=== PATIENT | female | born 1975 | race Two or more races ===

== ENCOUNTER 2020-05-26 09:46 | Outpatient (REF) | payer OTHER, SELFPAY | END 2020-05-26 09:47 | disposition home or self-care (01) | LOC: HO.LAB 09:46 | PROVIDERS: Visit Provider Internal Medicine | DX: Z20.822 Contact with and (suspected) exposure to COVID-19 (principal) | CPT/HCPCS: 36415; C9803; U0003 ==

== ENCOUNTER 2020-06-24 11:42 | Outpatient (REF) | payer OTHER, SELFPAY ==
[2020-06-24 13:53] LABS: MANUAL DIFF FLAG NO
[2020-06-24 14:04] LABS: Basophils Absolute Auto 0.1 X10*3/uL (0.0-0.2); Basophils Percent Auto 0.7 % (0-2); Eosinophils Absolute Auto 0.1 X10*3/uL (0.0-0.4); Eosinophils Percent Auto 1.5 % (0-4); Hemoglobin 9.7 g/dl (12.0-16.0); Imm Gran Abs Auto 0.02 X10*3/uL (0.00-0.03); Imm Gran Pct Auto 0.2 % (0.0-0.4); Lymphocytes Absolute Auto 2.2 X10*3/uL (1.2-4.9); Lymphocytes Percent Auto 26.9 % (20-40); Mean Corpuscular HGB Conc 29.4 g/dl (31.0-35.0); Mean Corpuscular Hemoglobin 23.4 pg (27.0-33.0); Mean Corpuscular Volume 79.7 fL (80-98); Mean Platelet Volume 10.5 fL (9.4-12.3); Monocytes Absolute Auto 0.6 X10*3/uL (0.1-1.2); Monocytes Percent Auto 7.8 % (2-11); Neutrophils Absolute Auto 5.2 X10*3/uL (2.0-8.3); Neutrophils Percent Auto 62.9 % (45-73); Platelet Count 332 X10*3/uL (160-400); Red Blood Count 4.14 X10*6/uL (4.20-5.50); Red Cell Distribution Width 15.6 % (11.0-16.0); White Blood Count 8.2 X10*3/uL (4.8-10.8)
[2020-06-24 14:09] LABS: Glucose Urine UA NEG (NEG); Leukocyte Esterase Urine NEG (NEG); Nitrite Urine NEG (NEG); Urine Blood NEG (NEG); Urine Ketones NEG (NEG); Urine Protein NEG (NEG-TRACE)
[2020-06-24 14:14] LABS: Appearance Urine CLEAR; Color Urine YELLOW
[2020-06-24 14:25] LABS: RBC Urine 0 /HPF (0); Squamous Epithelial Cell Urine 1+ /LPF; WBC Urine 0 /HPF (0-4)
[2020-06-24 14:28] LABS: Alanine Aminotransferase 21 U/L (0-31); Albumin Level 4.3 g/dL (3.5-5.0); Alkaline Phosphatase 114 U/L (39-117); Anion Gap 14 (12-20); Aspartate Amino Transferase 18 U/L (5-31); Bilirubin Total 0.6 mg/dL (0.0-1.0); Blood Urea Nitrogen 7 mg/dL (9-16); Calcium 9.3 mg/dL (8.4-10.2); Carbon Dioxide 27 mmol/L (22-29); Chloride 103 mmol/L (96-108); Cholesterol 181 mg/dL; Estimated Glomerular Filt Rate > 60; Glucose Fasting 87 mg/dL (60-99); HDL Cholesterol 59 mg/dL; LDL Cholesterol Calculated 104 mg/dl; Potassium 4.1 mmol/L (3.3-5.1); Sodium 140 mmol/L (135-145); Total Protein 7.8 g/dL (6.5-8.0); Triglycerides 93 mg/dL
[2020-06-24 14:40] LABS: TSH reflex Free T4 0.63 uIU/mL (0.32-4.0)
== END 2020-06-24 11:43 | disposition home or self-care (01) ==
LOC: HO.HMGCLDS 11:42
PROVIDERS: PCP Internal Medicine; Visit Provider Internal Medicine
DX: Z00.00 Encounter for general adult medical examination without abnormal findings (principal); Z13.29 Encounter for screening for other suspected endocrine disorder; Z13.220 Encounter for screening for lipoid disorders
CPT/HCPCS: 36415; 80053; 80061; 81001; 84443; 85025

== ENCOUNTER 2020-07-23 07:08 | Outpatient (REF) | payer OTHER, SELFPAY ==
[2020-07-23 07:49] LABS: Immature Retic Fraction 13.2 % (3.0-15.9); Retic HGB Equivalent 26.9 pg (30.0-35.0); Reticulocytes Absolute 0.041 X10*6/uL (0.026-0.095)
[2020-07-23 08:06] LABS: Iron 23 mcg/dL (30-160); Percent Iron Saturation 6 % (15-50); Total Iron Binding Capacity 362 mcg/dL (228-428); Unsaturated Iron Binding 339 ug/dL
[2020-07-24 18:03] LABS: Folate 10.9 ng/mL (> or = 4.0); Vitamin B12 307 pg/mL (200-900)
== END 2020-07-23 07:09 | disposition home or self-care (01) ==
LOC: HO.LAB 07:08
PROVIDERS: PCP Internal Medicine; Visit Provider Internal Medicine
DX: Z00.00 Encounter for general adult medical examination without abnormal findings (principal)
CPT/HCPCS: 36415; 82607; 82746; 83540; 85045

== ENCOUNTER 2020-08-25 08:18 | Outpatient (REF) | payer OTHER, SELFPAY ==
[2020-08-25 09:14] LABS: COVID-19 Test Negative (Negative)
== END 2020-08-25 08:19 | disposition home or self-care (01) ==
LOC: HO.LAB 08:18
PROVIDERS: Visit Provider Internal Medicine
DX: Z20.822 Contact with and (suspected) exposure to COVID-19 (principal)
CPT/HCPCS: 36415; 87635; C9803

== ENCOUNTER 2020-10-16 09:58 | Outpatient (REF) | payer OTHER, SELFPAY ==
--- NOTE | ~2020-10-16 | MM_ITS ---
EXAMINATION: MM SCREENING DIGITAL BREAST TOMOSYNTHESIS, BILATERAL CLINICAL INFORMATION: Screening. Asymptomatic. Prior history benign left biopsies x3: left stereotactic biopsy 04/04/2016; left ultrasound guided biopsy x2 on 04/04/2016. The lifetime risk of breast cancer based on the Tyrer-Cuzick Model is 14%. COMPARISON: Mammography: 08/19/2017, 06/21/2016, 08/08/2015, targeted right breast ultrasound 06/21/2016 TECHNIQUE: Digital breast tomosynthesis is performed in both the craniocaudal and mediolateral oblique views along with computer-aided detection (CAD). Synthesized 2D images are generated from the tomosynthesis. FINDINGS: The breasts are heterogeneously dense, which may obscure small masses (ACR BI-RADS breast composition Category c). Parenchymal pattern is similar to prior exams. There is no significant mass or developing density or architectural abnormality. Left breast has 3 biopsy clip markers. There is a stable nodule adjacent to the most anterior clip marker 3:00 position consistent with fibroadenoma on biopsy 04/04/2016. There are stable loosely grouped calcifications posterior 3:00 left breast. The axilla and skin contours are unremarkable. MM/MM tomosynthesis screening BI IMPRESSION: No significant changes from prior studies. No mammographic evidence of malignancy. ASSESSMENT: BI-RADS 2: Benign RECOMMENDATION: Routine annual mammography screening. This patient's information was entered into a reminder system with a target due date for their next mammogram.
== END 2020-10-16 09:59 | disposition home or self-care (01) ==
LOC: HO.MAMMO 09:58
PROVIDERS: Visit Provider Internal Medicine
DX: Z12.31 Encounter for screening mammogram for malignant neoplasm of breast (principal)
CPT/HCPCS: 77063; 77067

== ENCOUNTER 2020-11-04 09:58 | Outpatient (REF) | payer OTHER, SELFPAY ==
[2020-11-04 12:01] LABS: ~Hepatitis B Surface Antibody REACTIVE (Nonreactive)
[2020-11-07 14:31] LABS: TS Negative Control Passed; TS Panel A 2; TS Panel B 0; TS Positive Control Passed; TSpotTB Negative (SeeBelow)
== END 2020-11-04 09:59 | disposition home or self-care (01) ==
LOC: HO.HMGCLDS 09:58
PROVIDERS: PCP Internal Medicine; Visit Provider Internal Medicine
DX: Z28.3 Underimmunization status (principal)
CPT/HCPCS: 36415; 86481; 86706; 86735; 86762; 86765; 86787

== ENCOUNTER 2021-02-16 11:23 | Outpatient (REF) | payer OTHER, SELFPAY ==
[2021-02-16 13:50] LABS: Hematocrit 31.5 % (37-47); Hemoglobin 9.7 g/dl (12.0-16.0); Mean Corpuscular HGB Conc 30.8 g/dl (31.0-35.0); Mean Corpuscular Hemoglobin 24.1 pg (27.0-33.0); Mean Corpuscular Volume 78.4 fL (80-98); Mean Platelet Volume 10.3 fL (9.4-12.3); Platelet Count 287 X10*3/uL (160-400); Red Blood Count 4.02 X10*6/uL (4.20-5.50); White Blood Count 10.5 X10*3/uL (4.8-10.8)
[2021-02-16 14:00] LABS: Iron 69 mcg/dL (30-160); Percent Iron Saturation 19 % (15-50); Total Iron Binding Capacity 371 mcg/dL (228-428); Unsaturated Iron Binding 302 ug/dL
[2021-02-16 14:21] LABS: TSH reflex Free T4 0.67 uIU/mL (0.32-4.0)
== END 2021-02-16 11:24 | disposition home or self-care (01) ==
LOC: HO.HMGCLDS 11:23
PROVIDERS: PCP Internal Medicine; Visit Provider Internal Medicine
DX: R10.9 Unspecified abdominal pain (principal); E61.1 Iron deficiency
CPT/HCPCS: 36415; 83540; 84443; 85027

== ENCOUNTER 2021-12-28 09:24 | Outpatient (REF) | payer OTHER, SELFPAY ==
[2021-12-28 11:40] LABS: Hematocrit 34.8 % (37.0-47.0); Hemoglobin 10.8 g/dl (12.0-16.0); Mean Corpuscular Hemoglobin 25.5 pg (27.0-33.0); Mean Corpuscular Volume 82.1 fL (80.0-98.0); Mean Platelet Volume 10.5 fL (9.4-12.3); Platelet Count 296 X10*3/uL (160-400); Red Blood Count 4.24 X10*6/uL (4.20-5.50); Red Cell Distribution Width 14.2 % (11.0-16.0); White Blood Count 9.6 X10*3/uL (4.8-10.8)
[2021-12-28 12:04] LABS: Anion Gap 12 (12-20); Blood Urea Nitrogen 12 mg/dL (9-16); Carbon Dioxide 28 mmol/L (22-29); Chloride 104 mmol/L (96-108); Estimated Glomerular Filt Rate > 60; Glucose Random 88 mg/dL (60-115); Potassium 4.4 mmol/L (3.3-5.1); Sodium 140 mmol/L (135-145)
[2021-12-28 12:27] LABS: Thyroid Stimulating Hormone 0.52 uIU/mL (0.32-4.0)
== END 2021-12-28 09:25 | disposition home or self-care (01) ==
LOC: HO.HMGCLDS 09:24
PROVIDERS: PCP Internal Medicine; Visit Provider Internal Medicine
DX: N93.8 Other specified abnormal uterine and vaginal bleeding (principal)
CPT/HCPCS: 36415; 80048; 84443; 85027

== ENCOUNTER 2022-01-06 08:53 | Outpatient (REF) | payer OTHER, SELFPAY ==
[2022-01-06 11:16] LABS: Hematocrit 23.1 % (37.0-47.0); Hemoglobin 7.3 g/dl (12.0-16.0); Mean Corpuscular HGB Conc 31.6 g/dl (31.0-35.0); Mean Corpuscular Hemoglobin 25.3 pg (27.0-33.0); Mean Corpuscular Volume 80.2 fL (80.0-98.0); Mean Platelet Volume 9.4 fL (9.4-12.3); Platelet Count 276 X10*3/uL (160-400); Red Blood Count 2.88 X10*6/uL (4.20-5.50); Red Cell Distribution Width 14.1 % (11.0-16.0); White Blood Count 12.5 X10*3/uL (4.8-10.8)
[2022-01-06 14:02] LABS: CT PCR NOT DETECTED (Not Detect.); NG PCR NOT DETECTED (Not Detect.)
[2022-01-07 13:07] LABS: BV Int Neg Control Negative (Negative); BV Int Pos Control Positive (Positive)
[2022-01-13 08:32] LABS: HPV mRNA E6/E7 rflx Not Detected (Not Detected)
== END 2022-01-06 08:54 | disposition home or self-care (01) ==
LOC: HO.LAB 08:53
PROVIDERS: PCP Internal Medicine; Visit Provider Advanced Practice Midwife
DX: Z30.430 Encounter for insertion of intrauterine contraceptive device (principal); N93.9 Abnormal uterine and vaginal bleeding, unspecified; N92.0 Excessive and frequent menstruation with regular cycle; N85.2 Hypertrophy of uterus
CPT/HCPCS: 36415; 58100; 58300; 85027; 87480; 87491; 87510; 87591; 87624; 87660; 88142; 88305; J7298

== ENCOUNTER 2022-01-06 11:55 | Emergency (ER) | payer OTHER, SELFPAY ==
[2022-01-06] VITALS (12 sets, daily range): BP systolic 113–137; BP diastolic 72–89; PULSE 71–92; RESP 13–20; TEMP 36.5–37.2; O2SAT 95–100; BMI 24.0
--- NOTE | ~2022-01-06 | US_ITS ---
EXAMINATION: US PELVIS CLINICAL INFORMATION: Abnormal vaginal bleeding with suprapubic pain. COMPARISON: None TECHNIQUE: Ultrasound of the pelvis is performed using both transabdominal and transvaginal transducers along with Doppler. Transvaginal imaging is performed due to inadequate visualization transabdominally. FINDINGS: Uterus: The uterus is anteverted, anteflexed and measures 10.2 cm in length, 4.8 cm and AP and 5.4 cm in transverse dimension. There is an IUD within the endometrial canal with endometrial not well visualized. There is a suspicion for a right lateral uterine cyst measuring 0.9 x 1.0 x 0.6 cm. The uterus is smooth in contour and has normal myometrial echogenicity. No visible fibroid. Adnexa: Both ovaries are visualized. There is normal color flow to the adnexa. There is no ovarian torsion. There is no pelvic ascites or fluid collection. Right ovary measures 2.5 x 1.7 x 1.8 cm and volume 4.0 mL. There are 2 paraovarian cyst measuring 0.7 x 0.5 x 0.7 cm and 1.1 x 0.9 x 1.3 cm. Left ovary measures measures 4.3 x 2.5 x 2.9 cm and volume 16.3 mL. There is anechoic cyst measuring 2.5 x 2.5 x 3.1 cm and a small daughter cyst within. There is no free fluid in cul-de-sac. US/US pelvic and transvaginal IMPRESSION: Reason insertion IUD within the endometrial canal in correct position. 2 right paraovarian cyst and a simple cyst with a daughter cyst within left ovary. Suspect right lateral uterine cyst.
--- NOTE | ~2022-01-06 | US_ITS ---
EXAMINATION: US PELVIS CLINICAL INFORMATION: Abnormal vaginal bleeding with suprapubic pain. COMPARISON: None TECHNIQUE: Ultrasound of the pelvis is performed using both transabdominal and transvaginal transducers along with Doppler. Transvaginal imaging is performed due to inadequate visualization transabdominally. FINDINGS: Uterus: The uterus is anteverted, anteflexed and measures 10.2 cm in length, 4.8 cm and AP and 5.4 cm in transverse dimension. There is an IUD within the endometrial canal with endometrial not well visualized. There is a suspicion for a right lateral uterine cyst measuring 0.9 x 1.0 x 0.6 cm. The uterus is smooth in contour and has normal myometrial echogenicity. No visible fibroid. Adnexa: Both ovaries are visualized. There is normal color flow to the adnexa. There is no ovarian torsion. There is no pelvic ascites or fluid collection. Right ovary measures 2.5 x 1.7 x 1.8 cm and volume 4.0 mL. There are 2 paraovarian cyst measuring 0.7 x 0.5 x 0.7 cm and 1.1 x 0.9 x 1.3 cm. Left ovary measures measures 4.3 x 2.5 x 2.9 cm and volume 16.3 mL. There is anechoic cyst measuring 2.5 x 2.5 x 3.1 cm and a small daughter cyst within. There is no free fluid in cul-de-sac. US/US pelvic ovarian doppler IMPRESSION: Reason insertion IUD within the endometrial canal in correct position. 2 right paraovarian cyst and a simple cyst with a daughter cyst within left ovary. Suspect right lateral uterine cyst.
--- NOTE | 2022-01-06 12:29 | ECG_ITS ---
Test Reason : dizziness Blood Pressure : / mmHG Vent. Rate : 089 BPM Atrial Rate : 089 BPM P-R Int : 166 ms QRS Dur : 080 ms QT Int : 376 ms P-R-T Axes : 053 014 024 degrees QTc Int : 457 ms Normal sinus rhythm Normal ECG No previous ECGs available Referred By: Lidia Russell Electronically Signed By:KAMILA OWENS
[2022-01-06] MEDS: 0.9 % Sodium Chloride 1,000 ML 999 ML IVCONT (12:43)
[2022-01-06 12:47] LABS: MANUAL DIFF FLAG NO
[2022-01-06 12:49] LABS: Basophils Absolute Auto 0.1 X10*3/uL (0.0-0.2); Basophils Percent Auto 0.6 % (0-2); Eosinophils Absolute Auto 0.3 X10*3/uL (0.0-0.4); Eosinophils Percent Auto 2.1 % (0-4); Hematocrit 23.1 % (37.0-47.0); Hemoglobin 7.3 g/dl (12.0-16.0); Imm Gran Abs Auto 0.05 X10*3/uL (0.00-0.03); Imm Gran Pct Auto 0.4 % (0.0-0.4); Lymphocytes Absolute Auto 2.7 X10*3/uL (1.2-4.9); Lymphocytes Percent Auto 22.6 % (20-40); Mean Corpuscular HGB Conc 31.6 g/dl (31.0-35.0); Mean Corpuscular Hemoglobin 25.4 pg (27.0-33.0); Mean Corpuscular Volume 80.5 fL (80.0-98.0); Mean Platelet Volume 9.7 fL (9.4-12.3); Monocytes Absolute Auto 0.8 X10*3/uL (0.1-1.2); Monocytes Percent Auto 6.8 % (2-11); Neutrophils Percent Auto 67.5 % (45-73); Platelet Count 280 X10*3/uL (160-400); Red Blood Count 2.87 X10*6/uL (4.20-5.50); Red Cell Distribution Width 14.3 % (11.0-16.0); White Blood Count 11.8 X10*3/uL (4.8-10.8)
[2022-01-06 12:59] LABS: INTERNATIONAL NORM RATIO 1.1 (0.9-1.1); Prothrombin Time 12.8 SEC (10.0-13.1)
[2022-01-06 13:11] LABS: Alanine Aminotransferase 18 U/L (0-31); Albumin Level 3.8 g/dL (3.5-5.0); Alkaline Phosphatase 88 U/L (39-117); Anion Gap 11 (12-20); Aspartate Amino Transferase 18 U/L (5-31); Bilirubin Total 0.4 mg/dL (0.0-1.0); Blood Urea Nitrogen 8 mg/dL (9-16); Calcium 8.9 mg/dL (8.4-10.2); Carbon Dioxide 27 mmol/L (22-29); Chloride 103 mmol/L (96-108); Creatinine Clr Calc Pharmacy 88.9; Estimated Glomerular Filt Rate > 60; Glucose Random 115 mg/dL (60-115); Magnesium 1.8 mg/dL (1.6-2.6); Potassium 3.6 mmol/L (3.3-5.1); Sodium 137 mmol/L (135-145); Total Protein 6.8 g/dL (6.5-8.0)
[2022-01-06 13:17] LABS: HCG Quantitative < 2 mIU/mL
--- NOTE | 2022-01-06 13:43 | ED.PREGNANCY ---
HPI - General Chief complaint: Recheck/Abnormal Lab/Rx Stated complaint: Blood transfusion Time Seen by Provider: 01/06/22 12:28 Source: patient Mode of arrival: ambulatory Limitations: no limitations History of Present Illness HPI Narrative: 46-year-old female who is currently being followed by OBZAHRA Covington CNM here at [facility] presenting to the ED after she was sent here by OBGYN for low H&H of 7.3/23.1 when compared to 12/28/2021 after her H&H was 18.8/34.8 due to abnormal uterine bleeding. Patient reports that over the past few weeks she has had abnormal vaginal bleeding with clots where she is using multiple pads daily. She reports associated dizziness. She just had a IUD placed prior to arrival by OBGYN. She reports she did have abnormal vaginal bleeding in the past 3 times and she had her 3 kids she had to receive blood transfusion although has never had this other than when she gave to her 3 kids. She denies any headaches, change in vision, nausea/vomiting, chest pain or shortness of breath, dyspnea on exertion, orthopnea, palpitations, paresthesias, back pain, dysuria, abnormal vaginal discharge, thoughts of STDs, history of cancer, recent travel or sick contacts, rashes, thoughts of or any other symptoms complaints or concerns at this time. MD Complaint: abdominal pain and vaginal bleeding Onset (ago): day(s) Pain Consistency: constant Location: pelvis Severity: moderate Quality: Cramping and Aching Relieving factors: none Exacerbating factors: none Associated symptoms: vaginal bleeding, abdominal pain and other (dizziness) Vaginal discharge: none Vaginal bleeding: heavy and clots Date of Last Menstrual Period: 01/06/22 Patient : No Related Data Allergies Allergy/AdvReac Type Severity Reaction Status Date / Time EPIDURAL Allergy Severe HYPERTENSIO Uncoded 01/06/22 09:00 N SIERRA LEONEAN CHEESE Allergy Intermediate HIVES/ITCHI Uncoded 01/06/22 09:00 NG Epidural Needle Allergy Unknown redness Uncoded 01/06/22 09:00 and itching Epidural AdvReac Unknown BP spike, Uncoded 01/06/22 09:00 heart pounding Review of Systems Review of Systems: Constitutional : No Fever, No Chills ENT/Mouth : No sore throat, No Rhinorrhea Eyes: No Eye Pain, No Redness Cardiovascular : No Chest Pain, No SOB Respiratory : No Cough, No Sputum, No Wheezing Gastrointestinal : + abdominal pain, No Nausea, No Vomiting, No Diarrhea Genitourinary : + irregular vaginal bleeding, No Dysuria, No Urinary Frequency, No pelvic pain, No abdnormal vaginal discharge Musculoskeletal : No Myalgias Skin : No rash Neuro : + Dizziness, No Weakness, No Headache Psych : No Anxiety/Panic, No Depression Heme/Lymph: No bruising, No Lymphadenopathy Endocrine : No Polyuria, No Polydipsia Yes all other systems are reviewed and are negative [facility] Past Medical History Attestation statement: The following information was validated with the patient. Source: old records reviewed and nursing notes reviewed Medical History Abdominal pain Anemia Annual physical exam Anxiety Depression Eczema Gallstones History of anemia Iron deficiency Overweight Vitamin D deficiency Surgical History History of ankle surgery History of foot surgery History of laparoscopic cholecystectomy History of tubal ligation Date of Last Menstrual Period: 01/06/22 Social History Social History Housing: House Alcohol intake: current Alcohol intake frequency: holidays/special occasions only Patient Tobacco Use Status: Never used Tobacco e-Cigarette/Vaping Use: Never Used Current occupational status: unemployed Physical Exam Vital Signs: Vital Signs: Last Vital Signs Temp 98.0 F 01/06/22 17:07 Pulse 83 01/06/22 17:07 Resp 16 01/06/22 17:07 BP 116/72 01/06/22 17:07 Pulse Ox 100 01/06/22 15:33 O2 Del Method 01/06/22 15:33 BMI result Body Mass Index 24.0 vital signs have been reviewed as normal and appeared to be correct. Blood pressure normal. Heart rate normal. Respiration rate normal. Temperature normal. Oxygen saturation normal. Appearance: Alert. Oriented X3. No acute distress. Head: Normal external exam. Normocephalic. Atraumatic. Eyes: PERRLA. EOMI. Conjunctiva and sclera normal. Eyelids normal. ENT: Pharynx normal. Uvula midline. Moist mucous membranes. No trismus noted. No drooling noted. No muffled voice noted. Neck: Normal inspection. Neck supple. FROM. No adenopathy. Thyroid Normal. No meningeal signs. No neck mass noted. CVS: Normal heart rate and rhythm. Heart sound normal. No murmurs noted. Pulses normal throughout. Respiratory: No respiratory distress. Painless inspiration. Breath sounds normal. No wheezes/rales/rhonchi noted. Chest nontender. No accessory muscle usage noted or decreased air movement noted. Abdomen: Soft and nontender. Bowel sounds normal in all 4 quadrants. No distention noted. No organomegaly noted. No visible injury noted. : Supervised by [employer], Normal external appearance of urethra. No lesions/lacerations or discharge or tenderness noted. Speculum exam normal appearance/palpation of vagina normal. No abnormal vaginal discharge noted. Otherwise no vaginal erythema. No foreign bodies noted. No vaginal laceration/lesions noted. She does have some dark blood noted at the cervix although no active bleeding. When she call she does not have any bleeding. IUD string noted. No tissue present in vagina. No vaginal mass noted. No vaginal swelling noted. No vaginal tenderness noted. Normal appearance of cervix. Normal palpation of cervix. Cervical os is closed. No abnormal cervical discharge noted. No cervical lesion/mass. No Bartholin cyst noted. No cervical motion tenderness noted. Negative chandelier sign. Normal bimanual exam. Uterine size normal. Bladder normal to palpation. Uterine consistency normal. Normal cervical palpation. Uterine mobility normal. Uterine shape normal. Normal adnexa. Normal rectovaginal exam. Back: No CVA tenderness. Full range of motion noted. Skin: Skin warm and dry. Normal skin color. Normal skin turgor. No rashes/lesions/lacerations noted. Extremities: No lower extremity edema. No calf tenderness is noted. Extremities exhibit normal range of motion. Extremities nontender. Neuro: Oriented X 3. No motor deficit. No sensory deficit. Reflexes normal. Course Course Course Narrative: 12:30pm - 46-year-old female who is currently being followed by MILAN Covington CNM here at [facility] presenting to the ED after she was sent here by OBGYN for low H&H of 7.3/23.1 when compared to 12/28/2021 after her H&H was 18.8/34.8 due to abnormal uterine bleeding. Patient reports that over the past few weeks she has had abnormal vaginal bleeding with clots where she is using multiple pads daily. She reports associated dizziness. She just had a IUD placed prior to arrival by OBGYN. She reports she did have abnormal vaginal bleeding in the past 3 times and she had her 3 kids she had to receive blood transfusion although has never had this other than when she gave to her 3 kids. Patient had labs while she was in the waiting room and patient's white blood cell count [id number]. H&H 7.3/23.1. Anion gap 11. BUN 8. Otherwise all other labs are within normal limits. Serum quant negative for . On exam patient has mild suprapubic abdominal pain. Vaginal exam revealed some dark red blood no clots and no active bleeding and no abnormal discharge no abnormalities noted to the cervical os. Cervical os is closed. No CVA tenderness is noted. No rashes or lesions noted. Plan: Patient signed blood transfusion consent form at this time. Will order 2 packs of red blood cells, L of IV fluids, ovarian/Doppler/pelvic/transvaginal ultrasound along with UA and re-evaluate. Reevaluation(s) Reevaluation #1: - no evidence of UTI on UA. - I performed a second vaginal/speculum exam and patient is no longer bleeding. She reports the symptoms are completely resolved. - ultrasound revealed recent insertion IUD with in the endometrial canal and correct position with 2 Angelique ovarian cyst and simple cysts with the daughter cyst within the left ovary. Suspect right lateral uterine cyst otherwise no other acute processes. Therefore at this time Dr. Ornelas reported the patient can be discharged with follow-up. And instructed to return if any new or worsening symptoms. Patient understands agrees with this plan. Time: 20:22 MDM - OB/Uterine Contractions Medical Records Attestation: I reviewed the patient's medical records. Lab Data Attestation: I reviewed the patient's lab results. Result diagrams: 01/06/22 12:41 01/06/22 12:41 Labs: Lab Results 01/06/22 01/06/22 01/06/22 Range/Units 12:41 12:41 12:41 WBC 11.8 H (4.8-10.8) X10*3/uL RBC 2.87 L (4.20-5.50) X10*6/uL Hgb 7.3 L (12.0-16.0) g/dl Hct 23.1 L (37.0-47.0) % MCV 80.5 (80.0-98.0) fL MCH 25.4 L (27.0-33.0) pg MCHC 31.6 (31.0-35.0) g/dl RDW 14.3 (11.0-16.0) % Plt Count 280 (160-400) X10*3/uL MPV 9.7 (9.4-12.3) fL Immature Gran % (Auto) 0.4 (0.0-0.4) % Neut % (Auto) 67.5 (45-73) % Lymph % (Auto) 22.6 (20-40) % [place] % (Auto) 6.8 (2-11) % Eos % (Auto) 2.1 (0-4) % Baso % (Auto) 0.6 (0-2) % Lymph # (Auto) 2.7 (1.2-4.9) X10*3/uL [place] # (Auto) 0.8 (0.1-1.2) X10*3/uL Eos # (Auto) 0.3 (0.0-0.4) X10*3/uL Baso # (Auto) 0.1 (0.0-0.2) X10*3/uL Abs Immat Gran (auto) 0.05 H (0.00-0.03) X10*3/uL Absolute Neuts (auto) 8.0 (2.0-8.3) x10*3/uL Absolute Nucleated RBC 0.000 (0.0-0.012) X10*3/uL Nucleated RBC % (auto) 0.0 (0.0-0.2) /100WBC PT 12.8 (10.0-13.1) SEC INR 1.1 (0.9-1.1) Sodium 137 (135-145) mmol/L Potassium 3.6 (3.3-5.1) mmol/L Chloride 103 (96-108) mmol/L Carbon Dioxide 27 (22-29) mmol/L Anion Gap 11 L (12-20) BUN 8 L (9-16) mg/dL Creatinine 0.64 (0.5-1.4) mg/dL Estim Creat Clear Calc 88.9 Estimated GFR > 60 Random Glucose 115 (60-115) mg/dL Calcium 8.9 (8.4-10.2) mg/dL Magnesium 1.8 (1.6-2.6) mg/dL Total Bilirubin 0.4 (0.0-1.0) mg/dL AST 18 (5-31) U/L ALT 18 (0-31) U/L Alkaline Phosphatase 88 D (39-117) U/L Total Protein 6.8 (6.5-8.0) g/dL Albumin 3.8 (3.5-5.0) g/dL Beta HCG, Quant < 2 mIU/mL Urine Color Urine Appearance Urine pH (5.0-8.0) Ur Specific [place] (1.005-1.025) Urine Protein (Neg-Trace) mg/dL Urine Glucose (UA) (Negative) mg/dL Urine Ketones (Negative) mg/dL Urine Blood (Negative) Urine Nitrite (Negative) Ur Leukocyte Esterase (Negative) Urine RBC (0-2) /HPF Urine WBC (0-5) /HPF Ur Squamous Epith Cells (0-2) /HPF Urine Bacteria (None Seen) Hyaline Casts (0-2) /LPF COVID-19 (CH[facility]U) (Negative) COVID-19 Clin Com Blood Type Antibody Screen Crossmatch 01/06/22 01/06/22 01/06/22 Range/Units 12:57 13:47 14:50 WBC (4.8-10.8) X10*3/uL RBC (4.20-5.50) X10*6/uL Hgb (12.0-16.0) g/dl Hct (37.0-47.0) % MCV (80.0-98.0) fL MCH (27.0-33.0) pg MCHC (31.0-35.0) g/dl RDW (11.0-16.0) % Plt Count (160-400) X10*3/uL MPV (9.4-12.3) fL Immature Gran % (Auto) (0.0-0.4) % Neut % (Auto) (45-73) % Lymph % (Auto) (20-40) % [place] % (Auto) (2-11) % Eos % (Auto) (0-4) % Baso % (Auto) (0-2) % Lymph # (Auto) (1.2-4.9) X10*3/uL [place] # (Auto) (0.1-1.2) X10*3/uL Eos # (Auto) (0.0-0.4) X10*3/uL Baso # (Auto) (0.0-0.2) X10*3/uL Abs Immat Gran (auto) (0.00-0.03) X10*3/uL Absolute Neuts (auto) (2.0-8.3) x10*3/uL Absolute Nucleated RBC (0.0-0.012) X10*3/uL Nucleated RBC % (auto) (0.0-0.2) /100WBC PT (10.0-13.1) SEC INR (0.9-1.1) Sodium (135-145) mmol/L Potassium (3.3-5.1) mmol/L Chloride (96-108) mmol/L Carbon Dioxide (22-29) mmol/L Anion Gap (12-20) BUN (9-16) mg/dL Creatinine (0.5-1.4) mg/dL Estim Creat Clear Calc Estimated GFR Random Glucose (60-115) mg/dL Calcium (8.4-10.2) mg/dL Magnesium (1.6-2.6) mg/dL Total Bilirubin (0.0-1.0) mg/dL AST (5-31) U/L ALT (0-31) U/L Alkaline Phosphatase (39-117) U/L Total Protein (6.5-8.0) g/dL Albumin (3.5-5.0) g/dL Beta HCG, Quant mIU/mL Urine Color Yellow Urine Appearance Clear Urine pH 6.0 (5.0-8.0) Ur Specific [place] 1.010 (1.005-1.025) Urine Protein Negative (Neg-Trace) mg/dL Urine Glucose (UA) Negative (Negative) mg/dL Urine Ketones Negative (Negative) mg/dL Urine Blood Large (3+) H (Negative) Urine Nitrite Negative (Negative) Ur Leukocyte Esterase Negative (Negative) Urine RBC >20 H (0-2) /HPF Urine WBC 0-5 (0-5) /HPF Ur Squamous Epith Cells 3-5 (0-2) /HPF Urine Bacteria None Seen (None Seen) Hyaline Casts 0-2 (0-2) /LPF COVID-19 ([facility]U) Negative (Negative) COVID-19 Clin Com See Note Blood Type O Positive Antibody Screen NEGATIVE Crossmatch See Detail Imaging Data Ovarian/Doppler ultrasound: Attestation: I personally reviewed and interpreted this imaging study as follows: Radiologist's impression: FINDINGS: Uterus: The uterus is anteverted, anteflexed and measures 10.2 cm in length, 4.8 cm and AP and 5.4 cm in transverse dimension. There is an IUD within the endometrial canal with endometrial not well visualized. There is a suspicion for a right lateral uterine cyst measuring 0.9 x 1.0 x 0.6 cm. The uterus is smooth in contour and has normal myometrial echogenicity. ? No visible fibroid. Adnexa: Both ovaries are visualized. There is normal color flow to the adnexa. There is no ovarian torsion.? There is no pelvic ascites or fluid collection. Right ovary measures 2.5 x 1.7 x 1.8 cm and volume 4.0 mL. There are 2 paraovarian cyst measuring 0.7 x 0.5 x 0.7 cm and 1.1 x 0.9 x 1.3 cm. Left ovary measures measures 4.3 x 2.5 x 2.9 cm and volume 16.3 mL. There is anechoic cyst measuring 2.5 x 2.5 x 3.1 cm and a small daughter cyst within. There is no free fluid in cul-de-sac. US/US pelvic and transvaginal IMPRESSION: Reason insertion IUD within the endometrial canal in correct position. ? 2 right paraovarian cyst and a simple cyst with a daughter cyst within left ovary. ? Suspect right lateral uterine cyst. ECG Data Attestation: I personally reviewed and interpreted this ECG as follows: ECG interpretation date: 01/06/22 ECG interpretation time: 12:38 Interpretation: Normal sinus rhythm ventricular rate of 89 with a normal [place] interval normal QRS duration normal QT/QTC interval. No acute ischemic change are noted. No prior EKGs to compare to at this time. Critical Care Time Critical Care Time Critical Care Time: Yes Total Critical Care Time: 60 Attestation: I personally attest to this time spent taking care of the patient Discharge Plan Discharge Clinical Impression: Abnormal uterine bleeding (AUB), Anemia, Ovarian cyst, Cyst of uterus Patient Disposition: Home, Self-Care Instructions: Menorrhagia (ED), Anemia (ED) Referrals: Kelly Hoyt MD [Primary Care Provider] - 3 days Juan Ornelas MD [Physician] - 3 days Stand Alone Forms: Work/School Release Print Language: Algerian
[2022-01-06 15:15] LABS: COVID-19 Test Negative (Negative)
[2022-01-06 16:21] LABS: Appearance Urine Clear; Color Urine Yellow; Glucose Urine UA Negative (Negative); Leukocyte Esterase Urine Negative (Negative); Nitrite Urine Negative (Negative); Urine Blood Large (3+) (Negative); Urine Ketones Negative (Negative); Urine Protein Negative (Neg-Trace)
[2022-01-06 16:25] LABS: Bacteria Urine None Seen (None Seen); Hyaline Casts Urine 0-2 /LPF (0-2); RBC Urine >20 /HPF (0-2); WBC Urine 0-5 /HPF (0-5)
--- NOTE | 2022-01-06 17:09 | PC.NURSE ---
second unit of blood transfused- pt denies any reaction. vss.
--- NOTE | 2022-01-06 21:24 | P.CONOB_ITS ---
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 The?patient gives a history of of heavy vaginal bleeding associated with passage of blood clots and abdominal cramping over the last few weeks. In the office, an endometrial biopsy was taken and Mirena IUD inserted. H&H was sent stat and came back at 7.3/23.1 . HCG less than 2 cc:: CC: OB PMFSH Past Medical History Medical History Abdominal pain Anemia Annual physical exam Anxiety Depression Eczema Gallstones History of anemia Iron deficiency Overweight Vitamin D deficiency Surgical History Surgical History History of ankle surgery History of foot surgery History of laparoscopic cholecystectomy History of tubal ligation Social History Social History Housing: House Alcohol intake: current Alcohol intake frequency: holidays/special occasions only Patient Tobacco Use Status: Never used Tobacco e-Cigarette/Vaping Use: Never Used Current occupational status: unemployed Meds Allergies Allergy/AdvReac Type Severity Reaction Status Date / Time EPIDURAL Allergy Severe HYPERTENSIO Uncoded 01/06/22 09:00 N GAMBIAN CHEESE Allergy Intermediate HIVES/ITCHI Uncoded 01/06/22 09:00 NG Epidural Needle Allergy Unknown redness Uncoded 01/06/22 09:00 and itching Epidural AdvReac Unknown BP spike, Uncoded 01/06/22 09:00 heart pounding [employer]GER Physical Exam Vitals Vital signs: Temp Pulse Resp BP Pulse Ox O2 Del Method 99 F 78 14 126/89 100 01/06/22 20:33 01/06/22 20:33 01/06/22 20:33 01/06/22 20:33 01/06/22 20:33 01/06/22 20:33 BMI result Body Mass Index 24.0 Additional Comments: Physical exam reported by JOSEPH Felix in the emergency as the following: Abdomen nontender soft benign Pelvic exam minimal blood per vagina no evidence of active bleeding, IUD string identified, no cervical motion tenderness adnexal tenderness or uterine tender [employer] AND [employer]GER - Results Labs CBC & Chem 7: 01/06/22 12:41 01/06/22 12:41 Labs: Short CBC 01/06/22 Range/Units 12:41 WBC 11.8 H (4.8-10.8) X10*3/uL Hgb 7.3 L (12.0-16.0) g/dl Hct 23.1 L (37.0-47.0) % Plt Count 280 (160-400) X10*3/uL BMP 01/06/22 12:41 Sodium 137 Potassium 3.6 Chloride 103 Carbon Dioxide 27 BUN 8 L Creatinine 0.64 Calcium 8.9 Liver Function 01/06/22 Range/Units 12:41 Total Bilirubin 0.4 (0.0-1.0) mg/dL AST 18 (5-31) U/L ALT 18 (0-31) U/L Alkaline Phosphatase 88 D (39-117) U/L Albumin 3.8 (3.5-5.0) g/dL Urine 01/06/22 Range/Units 13:47 Urine Color Yellow Urine Appearance Clear Urine pH 6.0 (5.0-8.0) Ur Specific [place] 1.010 (1.005-1.025) Urine Protein Negative (Neg-Trace) mg/dL Urine Glucose (UA) Negative (Negative) mg/dL Antibody Screen Antibody Screen NEGATIVE 01/06/22 12:57 Imaging US - abdomen: Radiologist's impression: ITS Impressions Doppler Study Ultrasound 01/06/22 19:41 IMPRESSION: Reason insertion IUD within the endometrial canal in correct position. 2 right paraovarian cyst and a simple cyst with a daughter cyst within left ovary. Suspect right lateral uterine cyst. Pelvic/Transvag US 01/06/22 19:41 IMPRESSION: Reason insertion IUD within the endometrial canal in correct position. 2 right paraovarian cyst and a simple cyst with a daughter cyst within left ovary. Suspect right lateral uterine cyst. Assessment and Plan (1) Anemia: Status: Acute Plan The patient received 2 units of packed RBCs, was in stable condition afterwards, a repeat pelvic exam by JOSEPH Felix in the emergency room was reported to show no evidence of bleeding. Recommended therefore the following: Discharge the patient home, to follow up in the morning in the office with repeat CBC and to come back to emergency room in case of abdominal pain, fever, heavy vaginal bleeding, iron sulfate 325 mg p.o. t.i.d. I Spent a total of 20 minutes reviewing the chart, communicating to the ER provider and documenting the medical record
== END 2022-01-06 20:41 | disposition home or self-care (01) ==
PROVIDERS: Physician Assistant Medical; Emergency Provider Emergency Medicine Emergency Medical Services; PCP Internal Medicine
DX: N93.8 Other specified abnormal uterine and vaginal bleeding (principal); D64.9 Anemia, unspecified; N83.292 Other ovarian cyst, left side; N83.291 Other ovarian cyst, right side; N85.8 Other specified noninflammatory disorders of uterus; Z20.822 Contact with and (suspected) exposure to COVID-19
CPT/HCPCS: 36415; 36430; 76830; 76856; 80053; 81001; 81003; 83735; 84702; 85025; 85610; 86850; 86900; 86901; 86923; 87635; 93005; 93975; 96360; 99285; P9016

== ENCOUNTER 2022-01-07 11:12 | Outpatient (REF) | payer OTHER, SELFPAY ==
[2022-01-07 12:04] LABS: Hemoglobin 9.7 g/dl (12.0-16.0); Mean Corpuscular HGB Conc 32.3 g/dl (31.0-35.0); Mean Corpuscular Hemoglobin 26.4 pg (27.0-33.0); Mean Corpuscular Volume 81.5 fL (80.0-98.0); Mean Platelet Volume 9.8 fL (9.4-12.3); Platelet Count 287 X10*3/uL (160-400); Red Blood Count 3.68 X10*6/uL (4.20-5.50); Red Cell Distribution Width 14.4 % (11.0-16.0); White Blood Count 10.1 X10*3/uL (4.8-10.8)
[2022-01-07 12:06] LABS: Appearance Urine Clear; Color Urine Yellow; Glucose Urine UA Negative (Negative); Leukocyte Esterase Urine Moderate (2+) (Negative); Nitrite Urine Negative (Negative); Specific Gravity - Urine <= 1.005 (1.005-1.025); Urine Blood Moderate (2+) (Negative); Urine Ketones Negative (Negative); Urine Protein Negative (Neg-Trace)
[2022-01-07 12:23] LABS: Bacteria Urine None Seen (None Seen); Hyaline Casts Urine 0-2 /LPF (0-2); RBC Urine 0-2 /HPF (0-2); Squamous Epithelial Cell Urine 0-2 /HPF (0-2); UACC Culture Trigger YES
[2022-01-07 12:53] LABS: Alanine Aminotransferase 19 U/L (0-31); Albumin Level 3.7 g/dL (3.5-5.0); Alkaline Phosphatase 84 U/L (39-117); Anion Gap 12 (12-20); Aspartate Amino Transferase 18 U/L (5-31); Bilirubin Total 0.4 mg/dL (0.0-1.0); Blood Urea Nitrogen 7 mg/dL (9-16); Calcium 8.7 mg/dL (8.4-10.2); Carbon Dioxide 25 mmol/L (22-29); Chloride 105 mmol/L (96-108); Cholesterol 173 mg/dL; Estimated Glomerular Filt Rate > 60; Glucose Fasting 78 mg/dL (60-99); HDL Cholesterol 45 mg/dL; Iron 93 mcg/dL (30-160); LDL Cholesterol Calculated 97 mg/dl; Percent Iron Saturation 26 % (15-50); Potassium 4.3 mmol/L (3.3-5.1); Sodium 138 mmol/L (135-145); Total Iron Binding Capacity 351 mcg/dL (228-428); Total Protein 6.5 g/dL (6.5-8.0); Triglycerides 155 mg/dL; Unsaturated Iron Binding 258 ug/dL
[2022-01-07 12:58] LABS: Vitamin D 25-OH Total 20.8 ng/mL (>30)
== END 2022-01-07 11:13 | disposition home or self-care (01) ==
LOC: HO.LAB 11:12
PROVIDERS: PCP Internal Medicine; Visit Provider Advanced Practice Midwife
DX: Z00.00 Encounter for general adult medical examination without abnormal findings (principal); N92.0 Excessive and frequent menstruation with regular cycle; E55.9 Vitamin D deficiency, unspecified; E61.1 Iron deficiency; D64.9 Anemia, unspecified
CPT/HCPCS: 36415; 80053; 80061; 81001; 82306; 83540; 85027; 87086

== ENCOUNTER 2022-01-26 12:03 | Outpatient (REF) | payer OTHER, SELFPAY | END 2022-01-26 12:04 | disposition home or self-care (01) | LOC: HO.MDS 12:03 | PROVIDERS: Visit Provider Internal Medicine | DX: D50.9 Iron deficiency anemia, unspecified (principal) | CPT/HCPCS: 96365; J1756 ==

== ENCOUNTER 2022-02-02 08:09 | Outpatient (REF) | payer OTHER, SELFPAY | END 2022-02-02 08:10 | disposition home or self-care (01) | LOC: HO.MDS 08:09 | PROVIDERS: Visit Provider Internal Medicine | DX: D50.9 Iron deficiency anemia, unspecified (principal) | CPT/HCPCS: 96365; J1756 ==

== ENCOUNTER 2022-02-09 09:31 | Outpatient (REF) | payer OTHER, SELFPAY | END 2022-02-09 09:32 | disposition home or self-care (01) | LOC: HO.MDS 09:31 | PROVIDERS: Visit Provider Internal Medicine | DX: D50.9 Iron deficiency anemia, unspecified (principal) | CPT/HCPCS: 96365; J1756 ==

== ENCOUNTER 2022-02-25 10:58 | Day surgery (SDC) | payer OTHER, SELFPAY ==
--- NOTE | 2022-02-24 10:33 | P.CONAN_ITS ---
Documented by User: Roseann Paredes NP 02/24/22 10:33 HPI - Anesthesia Eval Consult details Narrative: 46yo F for Uterine Ablation w/Novasure,with IUD removal PMFSH Active Problems Active Problems: All Active Problems (Updated 02/03/22 @ 15:30 by Juan Ornelas MD) Microscopic hematuria (Acute) Anemia (Acute) Encounter for IUD insertion (Acute) Enlarged uterus (Acute) Heavy menstrual bleeding (Acute) Abnormal uterine bleeding (AUB) (Acute) Dysfunctional uterine bleeding (Acute) Abdominal pain (Acute) Incomplete immunization status (Acute) Depression (Acute) Anxiety (Acute) Vitamin D deficiency (Acute) Iron deficiency (Acute) Annual physical exam (Acute) Past Medical History Medical History Abdominal pain Anemia Annual physical exam Anxiety Depression Eczema Gallstones History of anemia Iron deficiency Overweight Vitamin D deficiency Surgical History Surgical History History of ankle surgery History of foot surgery History of laparoscopic cholecystectomy History of tubal ligation Social History Social History Household Members: Spouse and Children Housing: House Alcohol intake: current Alcohol intake frequency: does not drink Patient Tobacco Use Status: Current someday Tobacco user Tobacco use type: Cigarette Cigarettes Per Day: 2 Years Smoked: 20 Smoked in Last 30 Days: Yes e-Cigarette/Vaping Use: Never Used Use of substances other than those prescribed or required for medical reasons: No Are you DNR?: No Advance Directives: No Advance Directives Information Provided: Yes Patient : No service: No Current occupational status: employed and unemployed Meds Allergies Allergy/AdvReac Type Severity Reaction Status Date / Time EPIDURAL Allergy Severe HYPERTENSIO Uncoded 02/25/22 11:21 N ECUADOREAN CHEESE Allergy Intermediate HIVES/ITCHI Uncoded 02/25/22 11:21 NG Home Medications Medication Instructions Recorded Confirmed Last Taken Type levonorgestrel 20 mcg/24 hours (8 intrauterine control 01/07/22 Unknown History yrs) 52 mg intrauterine device (Mirena) Exam Exam Date and Time: February 24, 2022 1033 Pertinent Lab Results Pertinent Lab Results: Laboratory Tests 01/07/22 01/19/22 11:44 15:53 WBC 10.4 Hgb 9.9 L Hct 31.2 L Plt Count 262 Sodium 138 Potassium 4.3 Chloride 105 Carbon Dioxide 25 BUN 7 L Creatinine 0.60 Assessment and Plan Assessment Anesthesia Assessment: Chart Reviewed Documented by User: Yoshi Jj MD 02/25/22 12:43 [facility] Past Medical History Medical History Abdominal pain Anemia Annual physical exam Anxiety Depression Eczema Gallstones History of anemia Iron deficiency Overweight Vitamin D deficiency Patient : No Family History Family history of problems with anesthesia: No Surgical History Surgical History History of ankle surgery History of foot surgery History of laparoscopic cholecystectomy History of tubal ligation History of Problems with Anesthesia: No Social History Social History Household Members: Spouse and Children Housing: House Alcohol intake: current Alcohol intake frequency: does not drink Patient Tobacco Use Status: Current someday Tobacco user Tobacco use type: Cigarette Cigarettes Per Day: 2 Years Smoked: 20 Smoked in Last 30 Days: Yes e-Cigarette/Vaping Use: Never Used Use of substances other than those prescribed or required for medical reasons: No Are you DNR?: No Advance Directives: No Advance Directives Information Provided: Yes Patient : No service: No Current occupational status: employed and unemployed Meds Allergies Allergy/AdvReac Type Severity Reaction Status Date / Time EPIDURAL Allergy Severe HYPERTENSIO Uncoded 02/25/22 11:21 N ECUADOREAN CHEESE Allergy Intermediate HIVES/ITCHI Uncoded 02/25/22 11:21 NG Home Medications Medication Instructions Recorded Confirmed Last Taken Type levonorgestrel 20 mcg/24 hours (8 intrauterine control 01/07/22 Unknown History yrs) 52 mg intrauterine device (Mirena) Exam Airway Mallampati Class: I TM Dist: >3cm Neck ROM: Full Loose/Missing/Broken Teeth: No Heart: ok Lungs: ok Assessment and Plan Assessment Anesthesia Assessment: Anesthesia Plan Discussed and Chart Reviewed Final Anesthetic Review Family History of Problems with Anesthesia: No History of Problems with Anesthesia: No NPO: Yes ASA Class: II Final Preanesthetic Review: No Changes in Pt Med Stat, Meds/Allgs Chart Reviewed, Consent Obtained/Reviewed and Anes Risks/Benef Reviewed Patient Risk: Low Procedure Risk: Low Anesthetic Plan Anesthetic Plan: GA and Agree w/ Assess. and Plan Disposition: Standard PACU
[2022-02-25 11:26] VITALS: BMI 30.9
[2022-02-25 11:32] VITALS: BP 121/79; PULSE 92; RESP 16; TEMP 36.8; O2SAT 100
[2022-02-25 11:34] LABS: Urine Pregnancy NEGATIVE (NEGATIVE)
[2022-02-25 11:35] LABS: UPreg QC Valid YES
[2022-02-25] MEDS: Lactated Ringers 1,000 ML 100 ML IVCONT (11:40)
--- NOTE | 2022-02-25 12:18 | MHC.SHP ---
Pre-Procedural Eval Section A Date of Service: 02/25/22 The patient is an INPATIENT: No Changes since office visit: No Cold of Flu in the past 2 weeks, No New Medical Problems, No Changes in Medication and No Patient answered all questions The History & Physical has been completed within 30 days and I have reviewed it.: Yes Section B Chief Complaint: Abnormal uterine and vaginal bleeding, Allergies: Allergies Allergy/AdvReac Type Severity Reaction Status Date / Time EPIDURAL Allergy Severe HYPERTENSIO Uncoded 02/25/22 11:21 N GRENADIAN CHEESE Allergy Intermediate HIVES/ITCHI Uncoded 02/25/22 11:21 NG Plan Diagnosis/Plan: Unchanged I have reviewed the history and physical and performed a pertinent physical examination on my patient. No changes have occurred unless specified.
--- NOTE | 2022-02-25 13:13 | P.BOP_ITS ---
Brief Operative Note Date of Service: 02/25/22 Pre-op diagnosis: Abnormal uterine bleeding Post-op diagnosis: same Procedure: NovaSure Endometrial Ablation, IUD removal Surgeon: Juan Ornelas MD Anesthesia: GLMA Was an Quick Sketch Artist used for this Procedure?: No Estimated blood loss (mL): 0 Pathology: none sent Condition: stable Disposition: PACU
--- NOTE | 2022-02-25 13:13 | W.PM.OPN ---
Operative Note Operative Note Date of Service: 02/25/22 Narrative: Preop diagnosis: Abnormal uterine bleeding Post Op Diagnosis: Same Op: Novasure Endometrial Ablation, IUD removal Anesthesia: GLMA Towboat Engineer: None QBL: Minimal Pathology: None Complications: None Procedure: The patient was put in the dorsal lithotomy position. She was prepped and draped in the usual sterile manner. Bimanual exam prior to prepping revealed a mobile, anteverted uterus. A speculum was placed in the vagina and the anterior lip of the cervix was grasped with a single toothed tenaculum and brought forward. The IUD string was seen, using long Mame clamp the IUD was taken out without complications. Taking care not to enter deep into the uterus, a sound was passed inside to measure the length of the uterus and cervix. This length was found to be 8 cm. Next, Hegar dilator was inserted into the cervical os to measure the cervical length which was 3 cm. This yielded an endometrial cavity length of 6.5 cm. A series of Hegar dilators were then inserted sequentially into the cervical os up to a size of 5 mm. The Novasure device was then opened and tested; the fan deployed easily. The instrument was set to the correct cavity length and introduced into the uterine cavity. The fan was slowly deployed with gentle movements to ensure a snug fit within the cavity. The cavity width read 4.5 cm. The measurements were imported and a cavity check was done. The trumpet was then slid down to the cervix and the device was activated. The total burn time was 104 seconds. The fan was retracted and device removed. The fan was examined and revealed charred tissue. The tenaculum was removed and the cervix examined for hemostasis which was achieved using pressure. Finally the speculum was removed. The patient tolerated the procedure well and was brought to the recovery room in a stable condition. At the end of the procedure all sponges and instruments were counted and correct. The blood loss was minimal and there were no complications.
[2022-02-25 13:28] VITALS: BP 120/81; PULSE 83; RESP 14; TEMP 36.5; O2SAT 94
[2022-02-25 13:33] VITALS: BP 128/87; PULSE 75; RESP 16; O2SAT 95
[2022-02-25 13:38] VITALS: BP 128/87; PULSE 73; RESP 17; O2SAT 96
[2022-02-25 13:43] VITALS: BP 134/80; PULSE 78; RESP 18; O2SAT 98
[2022-02-25 13:58] VITALS: BP 113/89; PULSE 80; RESP 18; TEMP 37; O2SAT 99
== END 2022-02-25 14:28 | disposition home or self-care (01) ==
PROVIDERS: PCP Internal Medicine; Visit Provider Obstetrics & Gynecology
PROC: (CPT 58353; principal; 2022-02-25 12:50)
DX: N93.9 Abnormal uterine and vaginal bleeding, unspecified (principal); Z30.432 Encounter for removal of intrauterine contraceptive device; D64.9 Anemia, unspecified; L30.9 Dermatitis, unspecified; E66.3 Overweight; Z68.31 Body mass index [BMI] 31.0-31.9, adult; E55.9 Vitamin D deficiency, unspecified; F32.A Depression, unspecified; F41.1 Generalized anxiety disorder; Z98.51 Tubal ligation status; F17.210 Nicotine dependence, cigarettes, uncomplicated; Z79.899 Other long term (current) drug therapy
CPT/HCPCS: 58353; 58301; 81025; J1100; J1885; J2405; J3010

== ENCOUNTER 2022-06-16 07:58 | Outpatient (REF) | payer OTHER, SELFPAY | END 2022-06-16 07:59 | disposition home or self-care (01) | LOC: HO.LNP 07:58 | PROVIDERS: PCP Internal Medicine; Visit Provider Obstetrics & Gynecology | DX: Z01.419 Encounter for gynecological examination (general) (routine) without abnormal findings (principal); R87.615 Unsatisfactory cytologic smear of cervix | CPT/HCPCS: 88142 ==

== ENCOUNTER 2022-06-16 08:30 | Outpatient (REF) | payer OTHER, SELFPAY ==
[2022-06-16 09:40] LABS: Hematocrit 38.2 % (37.0-47.0); Mean Corpuscular HGB Conc 31.4 g/dl (31.0-35.0); Mean Corpuscular Hemoglobin 26.4 pg (27.0-33.0); Mean Corpuscular Volume 84.1 fL (80.0-98.0); Mean Platelet Volume 9.9 fL (9.4-12.3); Platelet Count 263 X10*3/uL (160-400); Red Blood Count 4.54 X10*6/uL (4.20-5.50); Red Cell Distribution Width 13.1 % (11.0-16.0); White Blood Count 11.7 X10*3/uL (4.8-10.8)
== END 2022-06-16 08:31 | disposition home or self-care (01) ==
LOC: HO.LAB 08:30
PROVIDERS: PCP Internal Medicine; Visit Provider Obstetrics & Gynecology
DX: N93.9 Abnormal uterine and vaginal bleeding, unspecified (principal)
CPT/HCPCS: 36415; 85027

== ENCOUNTER 2022-09-22 14:42 | Outpatient (REF) | payer OTHER, SELFPAY ==
[2022-09-23 09:38] LABS: CT PCR NOT DETECTED (Not Detect.); NG PCR NOT DETECTED (Not Detect.)
[2022-09-23 11:19] LABS: BV Int Neg Control Negative (Negative); BV Int Pos Control Positive (Positive)
== END 2022-09-22 14:43 | disposition home or self-care (01) ==
LOC: HO.LNP 14:42
PROVIDERS: PCP Internal Medicine; Visit Provider Obstetrics & Gynecology
DX: N76.0 Acute vaginitis (principal)
CPT/HCPCS: 0353U; 87480; 87510; 87660

== ENCOUNTER 2022-09-24 08:38 | Outpatient (REF) | payer OTHER, SELFPAY ==
[2022-09-26 09:12] LABS: HBS Num1 15.46 mIU/mL (0-7.99); HIV AB/AG Nonreactive (Nonreactive); HIV Num 1 0.08 S/CO (0.00-0.99); ~HepC Num1 0.21 S/CO (0.00-0.79); ~Hepatitis B Surface Antibody REACTIVE (Nonreactive); ~Hepatitis C Antibody Nonreactive (Nonreactive)
[2022-09-26 09:21] LABS: Syphilis Screen Nonreactive (Nonreactive)
== END 2022-09-24 08:39 | disposition home or self-care (01) ==
LOC: HO.LAB 08:38
PROVIDERS: PCP Internal Medicine; Visit Provider Obstetrics & Gynecology
DX: Z11.4 Encounter for screening for human immunodeficiency virus [HIV] (principal); N76.0 Acute vaginitis; B96.89 Other specified bacterial agents as the cause of diseases classified elsewhere
CPT/HCPCS: 36415; 86706; 86780; 86803; 87389

== ENCOUNTER 2022-10-07 12:33 | Outpatient (REF) | payer OTHER, SELFPAY | END 2022-10-07 12:34 | disposition home or self-care (01) | LOC: HO.LNP 12:33 | PROVIDERS: PCP Internal Medicine; Visit Provider Obstetrics & Gynecology | DX: N90.89 Other specified noninflammatory disorders of vulva and perineum (principal); N89.8 Other specified noninflammatory disorders of vagina | CPT/HCPCS: 56605; 88305; 88312 ==

== ENCOUNTER → 2022-10-18 14:31 | Outpatient (BNVA) | payer OTHER, SELFPAY | PROVIDERS: PCP Internal Medicine; Visit Provider Obstetrics & Gynecology ==